=== PATIENT | female | born 1985 | race Caucasian/White ===

== ENCOUNTER 2022-07-16 07:30 | Emergency (ER) | payer OTHER ==
[2022-07-16] MEDS ORDERED: Lidocaine 1% with EPINEPHrine 1:100,000 50 ML MDV SUBCUT STA (07:36)
[2022-07-16] MEDS ORDERED: Proparacaine 0.5% Ophth Soln 15 ML Bottle EYEBOTH STA (07:36)
[2022-07-16] MEDS ORDERED: Bacitracin Oint 1 GM U/D Packet TOP ONE (07:36)
[2022-07-16] MEDS ORDERED: Diphtheria,Pertussis(Acell),Tetanus Vaccine 0.5 ML Syringe IM ONE (07:57)
== END 2022-07-16 08:36 | disposition home or self-care (01) ==
LOC: JP.ED 07:30
DX: S01.112A Laceration without foreign body of left eyelid and periocular area, initial encounter (principal); S01.412A Laceration without foreign body of left cheek and temporomandibular area, initial encounter; Z23 Encounter for immunization; Z88.5 Allergy status to narcotic agent; W22.8XXA Striking against or struck by other objects, initial encounter
CPT/HCPCS: 12011; 90471; 90715; 99282-25